=== PATIENT | male | born 1950 | race Caucasian/White ===

== ENCOUNTER 2021-11-24 09:28 | Observation (INO) | payer OTHER ==
[~2021-11-24] VITALS: Ht 177.8 cm; Wt 115.9 kg
[2021-11-24 10:15] LABS: HEMATOCRIT 45.7 % (42-54); MEAN CORPUSCULAR HEMOGLOBIN 31.1 pg (27.0-33.0); MEAN CORPUSCULAR HGB CONC 32.8 g/dL (32.0-36.0); MEAN CORPUSCULAR VOLUME 94.6 fL (79-99); PLATELET COUNT (AUTO) 287 K/uL (130-400); RED BLOOD CELL COUNT(AUTO) 4.83 MIL/uL (4.50-6.20); RED CELL DISTRIBUTION WIDTH 12.9 % (11.0-15.5); WHITE BLOOD COUNT (AUTO) 6.7 K/uL (4.8-10.8)
[2021-11-24 10:25] LABS: CREATININE 1.2 mg/dL (0.5-1.5)
[2021-11-24 10:36] LABS: ALBUMIN 3.9 g/dL (3.5-5.0); BILIRUBIN,DIRECT 0.1 mg/dL (0.0-0.3); BILIRUBIN,TOTAL 0.5 mg/dL (0.2-1.0); TOTAL PROTEIN, SERUM 6.9 g/dL (6.0-8.3)
[2021-11-24 11:24] LABS: BAND NEUTROPHILS % (MANUAL) 1 % (0-2); BASOPHILS % (MANUAL) 1 % (0-2); BLASTS, MANUAL % 1 (0-0); EOSINOPHILS % (MANUAL) 2 % (1-6); LYMPHOCYTES % (MANUAL) 32 % (22-44); MAN.DIFF COMMENT-IMPRESSION MANUAL DIFFERENTIAL; MONOCYTES % (MANUAL) 4 % (2-9); PLATELET MORPHOLOGY COMMENT ADEQUATE; REACTIVE LYMPHOCYTES 6 % (0-0); SEGMENTED NEUTROPHILS % 53 % (40-70)
[2021-11-24] MEDS ORDERED: KETOROLAC 15MG/ML VIAL (15MG/ML) IV ONE (13:30)
[2021-11-24 13:45] VITALS: BP 137/75
[2021-11-24] MEDS ORDERED: 0.9%NACL 10ML VIAL IVP PRN (14:00)
[2021-11-24] MEDS ORDERED: ZOLPIDEM TARTRATE 5 MG TAB PO PRN (14:00)
[2021-11-24] MEDS ORDERED: DIPHENHYDRAMINE HCL 25 MG CAPSULE PO PRN (14:00)
[2021-11-24] MEDS: NEOMYCIN/POLYMYXIN/HC OTIC SUSP 10ML BOTTLE AS SCH ×2 (14:00→21:47)
[2021-11-24] MEDS ORDERED: GUAIFENESIN-DM 200/20 MG 10 ML PO PRN (14:00)
[2021-11-24] MEDS ORDERED: DiphenhydrAMINE HCL 50 MG/ML VIAL IVP PRN (14:00)
[2021-11-24] MEDS ORDERED: NITROGLYCERIN 0.4 MG SL TAB SL PRN (14:00)
[2021-11-24] MEDS ORDERED: OMEP20CA12 PO (15:31)
[2021-11-24] MEDS ORDERED: LOSARTAN 100 MG PO (15:31)
[2021-11-24 16:00] VITALS: BP 124/72
[2021-11-24 19:46] VITALS: BP 123/66
[2021-11-24] MEDS: CEFUROXIME AXETIL 250 MG TABLET PO SCH (21:20)
[2021-11-24 23:26] VITALS: BP 116/58
[2021-11-25 03:43] VITALS: BP 106/55
[2021-11-25 05:16] LABS: HEMATOCRIT 41.7 % (42-54); MEAN CORPUSCULAR HEMOGLOBIN 31.4 pg (27.0-33.0); MEAN CORPUSCULAR HGB CONC 33.3 g/dL (32.0-36.0); MEAN CORPUSCULAR VOLUME 94.3 fL (79-99); RED BLOOD CELL COUNT(AUTO) 4.42 MIL/uL (4.50-6.20); RED CELL DISTRIBUTION WIDTH 12.7 % (11.0-15.5); WHITE BLOOD COUNT (AUTO) 6.5 K/uL (4.8-10.8)
[2021-11-25 05:24] LABS: CREATININE 1.2 mg/dL (0.5-1.5); POTASSIUM 4.1 mmol/L (3.5-5.1)
[2021-11-25] MEDS ORDERED: REGADENOSON 0.4 MG/5 ML PF SYG IVP SCH (07:00)
[2021-11-25] MEDS: ASPIRIN 81 MG EC TAB PO SCH (08:12)
[2021-11-25] MEDS: LOSARTAN 100 MG TABLET PO SCH (08:12)
[2021-11-25] MEDS: NEOMYCIN/POLYMYXIN/HC OTIC SUSP 10ML BOTTLE AS SCH ×3 (08:15→20:33)
[2021-11-25] MEDS: CEFUROXIME AXETIL 250 MG TABLET PO SCH ×2 (09:55→20:33)
[2021-11-25 11:00] VITALS: BP 118/62
[2021-11-25 16:09] VITALS: BP 120/65
[2021-11-25] MEDS ORDERED: ACETAMINOPHEN 325 MG TAB ONE (17:22)
[2021-11-25] MEDS ORDERED: ACETAMINOPHEN 325 MG TAB PO PRN (17:30)
[2021-11-25 19:51] VITALS: BP 115/63
[2021-11-25 23:21] VITALS: BP 119/59
[2021-11-26 03:53] VITALS: BP 122/64
[2021-11-26 07:58] VITALS: BP 126/71
[2021-11-26] MEDS: ASPIRIN 81 MG EC TAB PO SCH (08:47)
[2021-11-26] MEDS: LOSARTAN 100 MG TABLET PO SCH (08:47)
[2021-11-26] MEDS: CEFUROXIME AXETIL 250 MG TABLET PO SCH (08:47)
[2021-11-26] MEDS: NEOMYCIN/POLYMYXIN/HC OTIC SUSP 10ML BOTTLE AS SCH (08:48)
[2021-11-26 12:00] VITALS: BP 126/71
== END 2021-11-26 11:30 | disposition home or self-care (01) ==
LOC: EDH 09:28 → EDHIP 09:29 → 3DH 13:51
PROVIDERS: ADMIT Internal Medicine; ATTEND Internal Medicine
DX: R55 Syncope and collapse (principal); I10 Essential (primary) hypertension; E66.01 Morbid (severe) obesity due to excess calories; H60.92 Unspecified otitis externa, left ear; R00.1 Bradycardia, unspecified; I45.10 Unspecified right bundle-branch block; I45.5 Other specified heart block; K21.9 Gastro-esophageal reflux disease without esophagitis; Z86.16 Personal history of COVID-19; Z68.36 Body mass index [BMI] 36.0-36.9, adult
CPT/HCPCS: 36415 ×2; 78452; 80048 ×2; 80076; 82550 ×3; 83874 ×3; 84484 ×3; 85025; 85027; 93005; 93017; 93306; A9500 ×2; G0378 ×45; J2785; 96374